=== PATIENT | female | born 1940 | race Two or more races ===

== ENCOUNTER 2017-06-01 21:58 | Inpatient (IN) | payer OTHER ==
[~2017-06-01] VITALS: Ht 157.5 cm; Wt 59.0 kg
[~2017-06-01 21:58] MED LIST: DUI500 PO; PERCOCET 5-3251 EACH PO; XARELTO10 MG PO
== END 2017-06-25 16:29 | DRG 166 ==
LOC: ER 21:58 → MEDJ 06-02 08:36 → MEDI 06-02 08:36 → SEC-K 06-02 08:36 → MEDI 06-03 11:21 → MEDJ 06-07 14:54
PROVIDERS: Specialist
PROC: 4A033R1 Measurement of Arterial Saturation, Peripheral, Percutaneous Approach (ICD-10-PCS; 2017-06-02)
PROC: 3E0F7GC Introduction of Other Therapeutic Substance into Respiratory Tract, Via Natural or Artificial Opening (ICD-10-PCS; 2017-06-02)
PROC: BW24Y0Z Computerized Tomography (CT Scan) of Chest and Abdomen using Other Contrast, Unenhanced and Enhanced (ICD-10-PCS; 2017-06-02)
PROC: B246ZZZ Ultrasonography of Right and Left Heart (ICD-10-PCS; 2017-06-03)
PROC: 8E0ZXY6 Isolation (ICD-10-PCS; 2017-06-07)
PROC: 0JB70ZZ Excision of Back Subcutaneous Tissue and Fascia, Open Approach (ICD-10-PCS; principal; 2017-06-09 10:00)
PROC: 0JD73ZZ Extraction of Back Subcutaneous Tissue and Fascia, Percutaneous Approach (ICD-10-PCS; 2017-06-16)
PROC: 0JB70ZZ Excision of Back Subcutaneous Tissue and Fascia, Open Approach (ICD-10-PCS; 2017-06-19)
PROC: 0JB70ZZ Excision of Back Subcutaneous Tissue and Fascia, Open Approach (ICD-10-PCS; 2017-06-24)
DX: J44.1 Chronic obstructive pulmonary disease with (acute) exacerbation (principal); L89.153 Pressure ulcer of sacral region, stage 3; J98.11 Atelectasis; J90 Pleural effusion, not elsewhere classified; R09.02 Hypoxemia; F17.210 Nicotine dependence, cigarettes, uncomplicated; B95.2 Enterococcus as the cause of diseases classified elsewhere; B96.1 Klebsiella pneumoniae [K. pneumoniae] as the cause of diseases classified elsewhere; B37.2 Candidiasis of skin and nail; L21.8 Other seborrheic dermatitis; B96.5 Pseudomonas (aeruginosa) (mallei) (pseudomallei) as the cause of diseases classified elsewhere; D64.89 Other specified anemias

== ENCOUNTER 2024-12-27 16:13 | Inpatient (IN) | payer OTHER ==
[~2024-12-27] VITALS: Ht 152.4 cm; Wt 46.7 kg
[~2024-12-27 16:13] MED LIST changes: +ATORVASTATIN CA40 MG; +DULOXETINE; +DULOXETINE HCL40 MG; +INTEGRA PLUS C1 EACH; +THEOPHYLLINE A300 M1; +TIROSINT50 MCG; +VITAMIN A10000 UNI2
--- NOTE | 2024-12-27 16:17 | NUR ---
SE REIBE PTE ALERTA Y ORIENTADA EN PERSONA EN AMBULANCIA. PERSONAL PARAMEDICO REFIERE TRAER A PTE POR DIFICULTAD RESPIRATORIA. SE MIDEN S/V A PTE Y SE REALIZA EKG. PTE SE UBICA EN ANNE-MARIE.
[2024-12-27] MEDS ORDERED: LEVALBUTEROL HCL 1.25 MG/3 ML SOLUTION IH ONE (16:30)
[2024-12-27] MEDS ORDERED: 0.9 % SODIUM CHLORIDE 1,000 ML IV ONE (16:30)
--- NOTE | 2024-12-27 17:05 | NUR ---
SE EDUCA A PTE SOBRE [place] MEDICO, SE MODESTA MUESTRAS DE LABORATORIO UTILIZANDO MEDIDAS ASEPTICAS. SE COLOCA H/L MOMO DE EDEMA. SE COLOCA IV FLUIDS RICA ORDEN MEDICA. SE NOTIFICAN RX Y CT PENDIENTES Y ABGS PENDIENTE.
[2024-12-27 17:43] LABS: BASO % 0.3 % (0.1-1.2); EOS # 0.12 (0.04-0.54); EOS % 1.1 % (0.7-7.0); LYMPH # 1.16 (1.18-3.74); LYMPH % 11.1 % (19.3-53.1); MEAN PLATELET VOLUME 10.10 fl (9.4-12.4); MONO # 0.48 (0.24-0.82); MONO % 4.6 % (4.7-12.5); NEUT # 8.63 (1.56-6.13); NEUT % 82.6 % (34.0-71.1); RED CELL DISTRIBUTION WIDTH 14.2 % (11.6-14.4)
[2024-12-27 17:55] LABS: ABG PH 7.438 (7.35-7.45); ABG PO2 65.9 mmHg (80-100); BICARBONATE 26.2 mmol/l (23-25)
[2024-12-27 18:04] LABS: COVID-19 AG NEGATIVE (NEGATIVE)
[2024-12-27 18:07] LABS: GLUCOSE FASTING 90.0 mg/dL (65-100); OSMOLALITY SERUM 283.0 MOSM/KG (275-295)
[2024-12-27 18:11] LABS: ALT/SGPT 45.0 U/L (12-78); AST/SGOT 40.0 U/L (15-37); BILIRUBIN TOTAL 0.4 mg/dL (0.3-1.2); BUN CREA RATIO 27.0 (7.0-25.0); CREATININE SERUM 0.56 mg/dL (0.55-1.02); GFR 103.64; GLOBULINA 4.2 G/DL (2.4-3.5)
[2024-12-27 18:26] LABS: LYMPHOCYTE MAN 13.0 %; MONOCYTE MAN 6.0 %; NEUTROPHILS MAN 80.0 %
[2024-12-27 18:29] LABS: o2 21 %
[2024-12-27] MEDS ORDERED: 0.9 % SODIUM CHLORIDE 1,000 ML IV SCH (21:15)
[2024-12-27] MEDS ORDERED: IPRATROPIUM BROMIDE 0.5 MG/2.5 ML AMPUL.NEB IH SCH (21:17)
[2024-12-27] MEDS ORDERED: LEVALBUTEROL HCL 1.25 MG/3 ML SOLUTION IH SCH (21:17)
[2024-12-27] MEDS ORDERED: GUAIFEN/DEXTROMETHORPHAN/PE 10 ML BLIST.PACK PO SCH (21:18)
[2024-12-27] MEDS ORDERED: CEFTRIAXONE SODIUM 2,000 MG in 0.9 % SODIUM CHLORIDE 100 ML IV SCH (21:19)
[2024-12-27] MEDS ORDERED: FAMOTIDINE/PF 20 MG in 0.9 % SODIUM CHLORIDE 8 ML IV PUSH SCH (21:19)
[2024-12-27] MEDS ORDERED: AZITHROMYCIN 500 MG in DEXTROSE 5 % IN WATER 250 ML IV SCH (21:19)
[2024-12-27] MEDS ORDERED: ACETAMINOPHEN 500 MG GEL..CAP PO PRN (21:30)
[2024-12-27] MEDS ORDERED: METHYLPREDNISOLONE SOD SUCC 125 MG VIAL IV ONE (21:30)
[2024-12-28 04:00] VITALS: BP 104/62; O2SAT 95
[2024-12-28 04:19] LABS: INR 1.02
[2024-12-28 05:03] LABS: COVID-19 AG NEGATIVE (NEGATIVE)
[2024-12-28 07:00] VITALS: BP 87/40; O2SAT 92
[2024-12-28] MEDS ORDERED: ENOXAPARIN SODIUM 40 MG/0.4 ML SYRINGE SUBCUTANEO SCH (09:00)
[2024-12-28 17:15] VITALS: BP 105/47
[2024-12-29 02:29] VITALS: BP 112/61; O2SAT 96
[2024-12-29 06:39] LABS: BASO % 0.2 % (0.1-1.2); EOS # 0.03 (0.04-0.54); EOS % 0.2 % (0.7-7.0); LYMPH # 1.84 (1.18-3.74); LYMPH % 12.0 % (19.3-53.1); MEAN PLATELET VOLUME 10.60 fl (9.4-12.4); MONO # 1.10 (0.24-0.82); MONO % 7.2 % (4.7-12.5); NEUT # 12.25 (1.56-6.13); NEUT % 80.0 % (34.0-71.1); RED CELL DISTRIBUTION WIDTH 14.6 % (11.6-14.4)
[2024-12-29 07:24] LABS: ALT/SGPT 40 U/L (12-78); AST/SGOT 29 U/L (15-37); BILIRUBIN TOTAL 0.37 mg/dL (0.3-1.2); BUN CREA RATIO 47 (7.0-25.0); CREATININE SERUM 0.55 mg/dL (0.55-1.02); GFR 105.82; GLOBULINA 3.5 G/DL (2.4-3.5); GLUCOSE FASTING 65 mg/dL (65-100); OSMOLALITY SERUM 290 MOSM/KG (275-295)
[2024-12-29] MEDS ORDERED: AZITHROMYCIN 500 MG in DEXTROSE 5 % IN WATER 250 ML IV SCH (09:00)
[2024-12-29] MEDS ORDERED: CEFTRIAXONE SODIUM 2,000 MG in 0.9 % SODIUM CHLORIDE 100 ML IV SCH (09:00)
[2024-12-29 09:29] VITALS: BP 115/53; O2SAT 97
[2024-12-29] MEDS ORDERED: AZITHROMYCIN 500 MG VIAL IV SCH (12:00)
[2024-12-29 17:19] VITALS: BP 104/56; O2SAT 96
[2024-12-30 01:16] VITALS: BP 99/56; O2SAT 98
[2024-12-30 08:00] VITALS: BP 118/66; O2SAT 93
[2024-12-30 11:20] LABS: ABG PH 7.408 (7.35-7.45); ABG PO2 82.8 mmHg (80-100); BICARBONATE 25.9 mmol/l (23-25); o2 21 %
[2024-12-30 12:16] LABS: BASO % 0.5 % (0.1-1.2); EOS # 0.25 (0.04-0.54); EOS % 2.5 % (0.7-7.0); LYMPH # 1.72 (1.18-3.74); LYMPH % 17.3 % (19.3-53.1); MEAN PLATELET VOLUME 10.70 fl (9.4-12.4); MONO # 1.22 (0.24-0.82); NEUT # 6.65 (1.56-6.13); NEUT % 67.0 % (34.0-71.1); RED CELL DISTRIBUTION WIDTH 14.5 % (11.6-14.4)
[2024-12-30 12:18] LABS: MONO % 12.3 % (4.7-12.5)
[2024-12-30 18:30] VITALS: BP 90/52; O2SAT 97
[2024-12-31 01:28] VITALS: BP 121/76; O2SAT 99
[2024-12-31 09:57] VITALS: BP 138/63; O2SAT 96
[2024-12-31] MEDS ORDERED: VANCOMYCIN HCL 1,000 MG VIAL IV SCH (17:00)
[2024-12-31 17:17] VITALS: BP 106/61; O2SAT 95
[2025-01-01 00:50] VITALS: BP 83/48; O2SAT 91
[2025-01-01 09:34] VITALS: BP 143/89; O2SAT 99
[2025-01-01 15:01] LABS: BASO % 0.3 % (0.1-1.2); EOS # 0.10 (0.04-0.54); EOS % 1.2 % (0.7-7.0); LYMPH # 1.11 (1.18-3.74); LYMPH % 12.9 % (19.3-53.1); MEAN PLATELET VOLUME 10.70 fl (9.4-12.4); MONO # 0.74 (0.24-0.82); MONO % 8.6 % (4.7-12.5); NEUT # 6.57 (1.56-6.13); NEUT % 76.7 % (34.0-71.1); RED CELL DISTRIBUTION WIDTH 14.5 % (11.6-14.4)
[2025-01-01 15:47] LABS: ALT/SGPT 45.0 U/L (12-78); AST/SGOT 39.0 U/L (15-37); BILIRUBIN TOTAL 0.29 mg/dL (0.3-1.2); BUN CREA RATIO 32.0 (7.0-25.0); CREATININE SERUM 0.5 mg/dL (0.55-1.02); GFR 118.12; GLOBULINA 3.6 G/DL (2.4-3.5); GLUCOSE FASTING 97.0 mg/dL (65-100); OSMOLALITY SERUM 288.0 MOSM/KG (275-295)
[2025-01-01 17:29] VITALS: BP 101/54; O2SAT 95
[2025-01-01] MEDS ORDERED: POTASSIUM PHOS,M-BASIC-D-BASIC 3 MM/ML VIAL IV ONE (18:00)
[2025-01-02 01:14] VITALS: BP 128/73; O2SAT 93
[2025-01-02 06:12] LABS: BASO % 0.6 % (0.1-1.2); EOS # 0.19 (0.04-0.54); EOS % 2.2 % (0.7-7.0); LYMPH # 1.57 (1.18-3.74); LYMPH % 18.2 % (19.3-53.1); MEAN PLATELET VOLUME 10.20 fl (9.4-12.4); MONO # 0.95 (0.24-0.82); MONO % 11.0 % (4.7-12.5); NEUT # 5.85 (1.56-6.13); NEUT % 67.8 % (34.0-71.1); RED CELL DISTRIBUTION WIDTH 14.6 % (11.6-14.4)
[2025-01-02 06:43] LABS: ALT/SGPT 42.0 U/L (12-78); AST/SGOT 36.0 U/L (15-37); BILIRUBIN TOTAL 0.45 mg/dL (0.3-1.2); BUN CREA RATIO 38.0 (7.0-25.0); CREATININE SERUM 0.37 mg/dL (0.55-1.02); GFR 167.2; GLOBULINA 3.1 G/DL (2.4-3.5); GLUCOSE FASTING 64.0 mg/dL (65-100); OSMOLALITY SERUM 285.0 MOSM/KG (275-295)
[2025-01-02 09:13] VITALS: BP 92/59; O2SAT 97
== END 2025-01-02 13:14 | disposition home or self-care (01) | DRG 194 ==
LOC: MEDI → ER 16:13 → MEDI 21:54 → SEC-K 21:54 → MEDI 12-28 01:38 → SEC-K 12-28 01:38 → MEDI 01-02 13:14
PROVIDERS: General Practice; Internal Medicine Infectious Disease; ADMIT Internal Medicine; ATTEND Internal Medicine
PROC: BB24ZZZ Computerized Tomography (CT Scan) of Bilateral Lungs (ICD-10-PCS; principal; 2024-12-27)
PROC: 3E0F7GC Introduction of Other Therapeutic Substance into Respiratory Tract, Via Natural or Artificial Opening (ICD-10-PCS; 2024-12-28)
DX: J18.9 Pneumonia, unspecified organism (principal); J44.1 Chronic obstructive pulmonary disease with (acute) exacerbation; J45.41 Moderate persistent asthma with (acute) exacerbation; G30.9 Alzheimer's disease, unspecified; E03.9 Hypothyroidism, unspecified; Y95 Nosocomial condition; Z87.891 Personal history of nicotine dependence